=== PATIENT | female | born 1960 | race American Indian/Alaskan Native ===

== ENCOUNTER 2018-10-03 13:51 | Emergency (ER) | payer MEDICAID ==
--- NOTE | 2018-10-03 14:22 | Emergency Department Report ---
Blank Doc - Documentation Documentation: 58 year with a few day history of left foot pain to metatarsal region without k nown trauma. feels warmth to area byut no edema p Plan xray and rx to dc home
[2018-10-03 14:39] VITALS: BP 134/80
--- NOTE | 2018-10-03 14:52 | XRay Report ---
LEFT FOOT, 3 views: History: Pain to first metatarsal. The bony architecture is intact. Bony alignment is normal. No soft tissue abnormalities are seen. The joint spaces appear preserved. Tiny plantar spur is identified. IMPRESSION: Unremarkable left foot.
--- NOTE | 2018-10-03 15:43 | Emergency Department Report ---
ED Extremity Problem HPI - General Chief complaint: Extremity Problem,Nontraumatic Stated complaint: LT FOOT PAIN/SWOLLEN Time Seen by Provider: 10/03/18 14:20 Source: patient Mode of arrival: Ambulatory Limitations: No Limitations - History of Present Illness Initial comments: 58-year-old female with a past medical history of left knee replacement 1 month ago presents ED complaining of left foot and ankle pain She denies injury, fall or trauma. MD Complaint: extremity pain, extremity swelling -: days(s) Location: left, lower extremity History of Same: No Radiation: proximal (towards knee) Severity scale (0 -10): 9 Quality: stabbing, constant Improves with: nothing Worsens with: weight bearing, walking Associated Symptoms: denies: chest pain, shortness of breath, fever, myalgias - Related Data Previous Rx's Medication Instructions Recorded Last Taken Type Diclofenac Dr (Nf) 50 mg PO BID #20 tablet. 10/03/18 Unknown Rx traMADol [Ultram 50 MG tab] 50 mg PO Q6HR PRN #20 tablet 10/03/18 Unknown Rx Allergies Allergy/AdvReac Type Severity Reaction Status Date / Time No Known Allergies Allergy Unverified 10/03/18 14:39 ED Review of Systems ROS: Stated complaint: LT FOOT PAIN/SWOLLEN Other details as noted in HPI Comment: All other systems reviewed and negative ED Past Medical Hx - Past Medical History Previous Medical History?: No - Surgical History Additional Surgical History: left knee replaced - Social History Smoking Status: Never Smoker Substance Use Type: None - Medications Home Medications: Home Medications Medication Instructions Recorded Confirmed Last Taken Type Diclofenac Dr (Nf) 50 mg PO BID #20 tablet. 10/03/18 Unknown Rx traMADol [Ultram 50 MG tab] 50 mg PO Q6HR PRN #20 tablet 10/03/18 Unknown Rx ED Physical Exam - General Limitations: No Limitations General appearance: alert, in no apparent distress - Head Head exam: Present: atraumatic, normocephalic - Eye Eye exam: Present: normal appearance - ENT ENT exam: Present: mucous membranes moist - Neck Neck exam: Present: normal inspection - Respiratory Respiratory exam: Present: normal lung sounds bilaterally. Absent: respiratory distress - Cardiovascular Cardiovascular Exam: Present: regular rate, normal rhythm. Absent: systolic murmur, diastolic murmur, rubs, gallop - GI/Abdominal GI/Abdominal exam: Present: soft, normal bowel sounds - Extremities Exam Extremities exam: Present: normal inspection, full ROM, tenderness (at the left knee), normal capillary refill, other. Absent: calf tenderness - Back Exam Back exam: Present: normal inspection. Absent: CVA tenderness (R), CVA tenderness (L) - Neurological Exam Neurological exam: Present: alert, oriented X3, CN II-XII intact, normal gait (with a walker) - Psychiatric Psychiatric exam: Present: normal affect, normal mood - Skin Skin exam: Present: warm, dry, intact, normal color. Absent: rash ED Course Vital Signs 10/03/18 14:37 Temperature 97.3 F L Pulse Rate 91 H Respiratory 18 Rate Blood Pressure 134/80 O2 Sat by Pulse 100 Oximetry ED Medical Decision Making - Radiology Data Radiology results: report reviewed, image reviewed Fluoro Time In Minutes: LEFT FOOT, 3 views: History: Pain to first metatarsal. The bony architecture is intact. Bony alignment is normal. No soft tissue abnormalities are seen. The joint spaces appear preserved. Tiny plantar spur is identified. IMPRESSION: Unremarkable left foot. Transcribed By: TTR Dictated By: MATT DEAL JR, MD Electronically Authenticated By: MATT DEAL JR, MD Signed Date/Time: 10/03/18 7989 - Medical Decision Making Patient female presents with foot pain Doppler studies of the left calf obtained, Doppler study shows normal study. X-rays of the foot and ankle shows no acute symptoms She is in no acute distress. Critical care attestation.: If time is entered above; I have spent that time in minutes in the direct care of this critically ill patient, excluding procedure time. ED Disposition Clinical Impression: Arthralgia of foot, left, Strain of foot, left Disposition: DC-01 TO HOME OR SELFCARE Is pt being admited?: No Does the pt Need Aspirin: No Condition: Stable Instructions: Arthralgia (ED) Additional Instructions: Make sure to follow up with the primary care physician as discussed. Take all your medications as you've been prescribed. If you have any worsening symptoms or develop new symptoms please return to ED i mmediately. Prescriptions: Diclofenac Dr (Nf) 50 mg PO BID #20 tablet. traMADol [Ultram 50 MG tab] 50 mg PO Q6HR PRN #20 tablet PRN Reason: Pain Referrals: [facility] MD CELE [Primary Care Provider] - 3-5 Days NAMRATA GARCIA MD [Referring] - 3-5 Days EULA CONDE MD [Staff Physician] - 3-5 Days Forms: Accompanied Note, Work/School Release Form(ED) Time of Disposition: 18:17
--- NOTE | 2018-10-03 17:13 | Vascular Lab Report ---
FINAL REPORT PROCEDURE: Left lower extremity duplex venous ultrasound. TECHNIQUE: Routine imaging of the deep venous system was performed. This included Doppler spectral a nalysis and color-flow imaging. HISTORY: Left leg pain and swelling. Left knee replacement in August. COMPARISON: No prior studies are available for comparison. FINDINGS: The deep venous system is compressible. Flow is confirmed by Doppler evaluation and color imaging. Th ere is normal augmentation of blood flow demonstrated. IMPRESSION: Normal study.
[2018-10-03] MEDS ORDERED: ULTRAM PO ONE (17:15)
[2018-10-03] MEDS ORDERED: ULTRAM ONE (17:16)
== END 2018-10-03 18:28 | disposition home or self-care (01) ==
LOC: ED 13:51
DX: S96.912A Strain of unspecified muscle and tendon at ankle and foot level, left foot, initial encounter (principal); Z96.652 Presence of left artificial knee joint; W01.198A Fall on same level from slipping, tripping and stumbling with subsequent striking against other object, initial encounter; Y93.01 Activity, walking, marching and hiking; Y92.89 Other specified places as the place of occurrence of the external cause; Y99.8 Other external cause status

== ENCOUNTER 2018-11-02 09:29 | Outpatient (CLI) | payer MEDICAID ==
--- NOTE | 2018-11-02 14:04 | Mammography Report ---
BILATERAL DIGITAL SCREENING MAMMOGRAM with CAD: 11/02/18 09:29:00 CLINICAL: Routine screening. COMPARISON:None available. FINDINGS: The breasts are almost entirely fatty.Bilateral arterial calcifications. No mass, architectural distortion or suspicious calcifications. IMPRESSION: No mammographic evidence of malignancy. BI-RADS CATEGORY: 2 -- Benign RECOMMENDATION: Routine mammographic screening in one year. COMMENT: Patient follow-up letters are generated by our [employer] application.
== END 2018-11-02 09:30 | disposition home or self-care (01) ==
LOC: MAMMO 09:29
PROVIDERS: ATTEND Internal Medicine
DX: Z12.31 Encounter for screening mammogram for malignant neoplasm of breast (principal); I10 Essential (primary) hypertension; M19.90 Unspecified osteoarthritis, unspecified site
CPT/HCPCS: 77067

== ENCOUNTER 2018-11-14 11:51 | Emergency (ER) | payer MEDICAID ==
[2018-11-14 12:31] VITALS: BP 133/83
--- NOTE | 2018-11-14 12:31 | Emergency Department Report ---
Blank Doc - Documentation Documentation: 58 y o female presents to ed with urinary freq and foul odor urine x couple of days denies vag bleed, d/c, abd pain ua ACC evaluate
[2018-11-14 13:49] LABS: Mucus,Urine FEW /HPF
[2018-11-14 13:52] LABS: Bilirubin,Urine NEG (Negative); Blood,Urine NEG (Negative); Color,Urine Yellow (Yellow); Protein,Urine <15 mg/dL mg/dL (Negative)
--- NOTE | 2018-11-14 15:35 | Emergency Department Report ---
ED Female HPI - General Chief complaint: Urogenital-Female Stated complaint: FREQUENT URINATION Time Seen by Provider: 11/14/18 12:28 Source: patient Mode of arrival: Ambulatory Limitations: No Limitations - History of Present Illness Initial comments: Patient is a 58-year-old asthmatic female presenting with some urinary frequency. Patient states this is being off approximately last 6 months and she states she's having to urinate every 2 hours. Patient states when she urinates she gets a flushed feeling. Patient states she saw her primary care physician and prescribed antibiotics for mild UTI but the symptoms did not resolve. Patient states she try to get back in touch with her primary doctor and was told it was nothing wrong with her. Patient states she is very frustrated because she is having issues with her quality of life. Patient denies abdominal pain back pain nausea vomiting diarrhea at this time. - Related Data Previous Rx's Medication Instructions Recorded Last Taken Type Diclofenac Dr (Nf) 50 mg PO BID #20 tablet. 10/03/18 Unknown Rx traMADol [Ultram 50 MG tab] 50 mg PO Q6HR PRN #20 tablet 10/03/18 Unknown Rx Doxycycline [Vibramycin CAP] 100 mg PO Q12HR #14 capsule 11/14/18 Unknown Rx Phenazopyridine [Pyridium] 200 mg PO BID #14 tab 11/14/18 Unknown Rx Allergies Allergy/AdvReac Type Severity Reaction Status Date / Time No Known Allergies Allergy Verified 11/14/18 11:52 ED Review of Systems ROS: Stated complaint: FREQUENT URINATION Other details as noted in HPI Comment: All other systems reviewed and negative ED Past Medical Hx - Past Medical History Hx Hypertension: Yes Hx Diabetes: Yes Hx Arthritis: Yes - Surgical History Additional Surgical History: left knee replaced - Social History Smoking Status: Never Smoker Substance Use Type: None - Medications Home Medications: Home Medications Medication Instructions Recorded Confirmed Last Taken Type Diclofenac Dr (Nf) 50 mg PO BID #20 tablet. 10/03/18 Unknown Rx traMADol [Ultram 50 MG tab] 50 mg PO Q6HR PRN #20 tablet 10/03/18 Unknown Rx Doxycycline [Vibramycin CAP] 100 mg PO Q12HR #14 capsule 11/14/18 Unknown Rx Phenazopyridine [Pyridium] 200 mg PO BID #14 tab 11/14/18 Unknown Rx ED Physical Exam - General Limitations: No Limitations General appearance: alert, in no apparent distress - Head Head exam: Present: atraumatic, normocephalic - Eye Eye exam: Present: normal appearance - ENT ENT exam: Present: mucous membranes moist - Neck Neck exam: Present: normal inspection - Respiratory Respiratory exam: Present: normal lung sounds bilaterally. Absent: respiratory distress, wheezes, rales, rhonchi - Cardiovascular Cardiovascular Exam: Present: regular rate, normal rhythm. Absent: systolic murmur, diastolic murmur, rubs, gallop - GI/Abdominal GI/Abdominal exam: Present: soft, normal bowel sounds. Absent: distended, tenderness, guarding, rebound - Extremities Exam Extremities exam: Present: normal inspection - Back Exam Back exam: Present: normal inspection - Neurological Exam Neurological exam: Present: alert, oriented X3 - Psychiatric Psychiatric exam: Present: normal affect, normal mood - Skin Skin exam: Present: warm, dry, intact, normal color. Absent: rash ED Course Vital Signs 11/14/18 12:28 Temperature 97.7 F Pulse Rate 92 H Respiratory 17 Rate Blood Pressure 133/83 O2 Sat by Pulse 98 Oximetry ED Medical Decision Making - Lab Data Lab Results 11/14/18 Range/Units 12:44 Urine Color Yellow (Yellow) Urine Turbidity Clear (Clear) Urine pH 5.0 (5.0-7.0) Ur Specific [place] 1.027 (1.003-1.030) Urine Protein <15 mg/dl (Negative) mg/dL Urine Glucose (UA) Neg (Negative) mg/dL Urine Ketones Neg (Negative) mg/dL Urine Blood Neg (Negative) Urine Nitrite Neg (Negative) Ur Reducing Substances Not Reportable Urine Bilirubin Neg (Negative) Urine Ictotest Not Reportable Urine Urobilinogen 2.0 (<2.0) mg/dL Ur Leukocyte Esterase Neg (Negative) Urine WBC (Auto) 1.0 (0.0-6.0) /HPF Urine RBC (Auto) 2.0 (0.0-6.0) /HPF U Epithel Cells (Auto) 2.0 (0-13.0) /HPF Urine Mucus Few /HPF - Medical Decision Making Patient's urinalysis showed no evidence of acute infection in her urine. Patient possibly with a chronic interstitial cystitis. Patient will be referred to urology. Patient started on doxycycline and Pyridium. Critical care attestation.: If time is entered above; I have spent that time in minutes in the direct care of this critically ill patient, excluding procedure time. ED Disposition Clinical Impression: Interstitial cystitis Disposition: DC-01 TO HOME OR SELFCARE Is pt being admited?: No Does the pt Need Aspirin: No Condition: Stable Instructions: Polyuria (ED) Referrals: JUAN CARLOS CANTRELL MD [Staff Physician] - 3-5 Days Time of Disposition: 15:34
== END 2018-11-14 15:49 | disposition home or self-care (01) ==
LOC: ED 11:51
DX: N30.10 Interstitial cystitis (chronic) without hematuria (principal); I10 Essential (primary) hypertension; E11.9 Type 2 diabetes mellitus without complications; M19.90 Unspecified osteoarthritis, unspecified site
CPT/HCPCS: 81001; 99283